=== PATIENT | female | born 1965 | race Caucasian/White ===

== ENCOUNTER 2016-07-28 05:20 | Day surgery (SDC) | payer BC ==
--- NOTE | 2016-07-25 02:59 | PREOPHP ---
DATE OF ADMISSION: 07/28/2016 HISTORY OF PRESENT ILLNESS: This is a 50-year-old female, 5, para 4, abortions 1. This pat ient had a history of 4 sections, a total abdominal hysterectomy, bilateral salpingectomy, and a history of having bladder tumors removed and a suburethral sling and with a protrusion that garg s been giving her recurrent UTIs. The patient has been placed on cream and exercises. She had been having frequent UTIs and some ____ resistant to antibiotics. MEDICATIONS: 1. Amitriptyline. 2. Gabapentin. 3. Klonopin. 4. Flomax. 5. Soma. 6. Ambien. 7. Medication for diabetes. 8. Bentyl. 9. Pepcid. 10. Zantac. 11. Proctosol. She has been complaining of having diabetes that has been out of control with a medication called Jonathan thompson recently with a little more controlled results. This patient has been found to have a prot rusion of the sling on the left vaginal area from the [employer] suburethral sling that will be excised under general anesthesia. FAMILY HISTORY: Noncontributory. PAST SURGICAL HISTORY: Her own history is also consistent with 4 sections, a hysterectomy, bladder tumor repair, and a sling. REVIEW OF SYSTEMS: Otherwise negative. FAMILY HISTORY: Noncontributory. PHYSICAL EXAMINATION: VITAL SIGNS: She is 5 feet 2 inches. She weighs 154. Her blood pressure is 140/90, pulse is 80, r espirations 16. HEAD AND NECK: Normal. CHEST: Clear. HEART: Normal sinus rhythm. LUNGS: Clear. ABDOMEN: Soft, nontender, no masses. GENITALIA: With a sling protrusion that is left-sided with vaginal atrophy. EXTREMITIES: Normal, absent uterus, normal pulses, no edema. DIAGNOSES: 1. Recurrent urinary tract infections. 2. Abdominal pain. 3. Diabetes. 4. Sling protrusion. 5. Constipation. PLAN: She is undergoing a sling to vaginal route and repair. The patient has been advised of the possible risks and possible complications of the procedure with her alternatives and options. Written information was provided. She had no more questions and agreed to go ahead with the procedu re with full understanding and no more questions. FINAL DIAGNOSIS: 1. Sling protrusion. 2. Recurrent infections. PROCEDURE: Revision of the sling with partial excision. Dictated By: TANESHA DIEGO/SLAVA Conf#: [id number] DID#: [id number]
[2016-07-27 12:12] VITALS: BMI 28.2
[2016-07-28] VITALS (8 sets, daily range): BP systolic 138–150; BP diastolic 71–81; PULSE 58–90; RESP 15–26; Ht 152.4 cm; Wt 69.5 kg
[~2016-07-28] VITALS: Ht 152.4 cm; Wt 69.5 kg
[~2016-07-28 05:20] MED LIST: ASPIRIN; ATORVASTATIN; HYDR-3498 PO; INDOMETHACIN; LINA1TAB5 PO; LOSARTAN
[2016-07-28] MEDS ORDERED: CEFAZOLIN 2 GM/50 ML (PMX) 50 ML IVPB ONE (06:00)
[2016-07-28] MEDS ORDERED: DEXTROSE 5%-LR 1,000 ML IV ONE (06:00)
[2016-07-28] MEDS ORDERED: POLYMYXIN/BACITRACIN 1L IRRIG ONE (07:04)
[2016-07-28] MEDS ORDERED: LIDOCAINE 1%/EPI (MDV) 20 ML INJ ONE (07:04)
[2016-07-28] MEDS ORDERED: ATOR20TA38 PO (07:07)
--- NOTE | 2016-07-28 07:57 | HPN ---
Date/Time of Note Date/Time of Note DATE: 07/28/16 TIME: 07:57 Interval H&P Admission Note Pt. seen H&P reviewed: No system changes TANESHA JEFFERS MD Jul 28, 2016 07:57
[2016-07-28] MEDS ORDERED: FENTAnyl 50 MCG/ML VIAL ONE (08:11)
[2016-07-28] MEDS ORDERED: CEFAZOLIN 1 GM INJ ONE (08:33)
[2016-07-28] MEDS ORDERED: NEOSTIGMINE 3 MG/3 ML SYRINGE ONE (08:33)
[2016-07-28] MEDS ORDERED: GLYCOPYRROLATE 0.4 MG INJ ONE (08:33)
[2016-07-28] MEDS ORDERED: ROCURONIUM 50 MG INJ ONE (08:33)
[2016-07-28] MEDS ORDERED: PROPOFOL 20 ML ONE ×2 (08:33→08:48)
[2016-07-28] MEDS ORDERED: SUCCINYLCHOLINE CHLORIDE 100 MG/5 ML SYG IV ONE (08:33)
[2016-07-28] MEDS ORDERED: LIDOCAINE 2% (SDV) 5 ML INJ ONE (08:33)
[2016-07-28] MEDS ORDERED: DIPHENHYDRAMINE 50 MG INJ IV PRN (09:00)
[2016-07-28] MEDS ORDERED: METOCLOPRAMIDE 10 MG INJ IV PRN (09:00)
[2016-07-28] MEDS ORDERED: FENTAnyl 50 MCG/ML VIAL IV PRN (09:00)
[2016-07-28] MEDS ORDERED: MEPERIDINE 25 MG INJ IV PRN (09:00)
[2016-07-28] MEDS ORDERED: ONDANSETRON 4 MG INJ IV PRN (09:00)
[2016-07-28] MEDS ORDERED: HYDROmorphONE (0.2 MG/ML) 10ML SYG IV PRN ×3 (09:00)
--- NOTE | 2016-07-28 09:28 | PD.PPDC ---
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
--- NOTE | 2016-07-28 09:34 | OPPN ---
Date/Time of Note Date/Time of Note DATE: 07/28/16 TIME: 09:30 Operative/Procedure Note Pre-Operative Diagnosis Recurrent UTI'S Suburethral sling protrusion Diabetes Post-Operative Diagnosis same Procedure vaginal sling revision and partial excision Surgeon: TANESHA JEFFERS MD Anesthesiologist: BRIANNA FAIR Findings sling vaginal protrusion Estimated blood loss: minimal Specimens sling, partial Complications: None Anesthesia type: general TANESHA JEFFERS MD Jul 28, 2016 09:34
--- NOTE | 2016-07-28 10:05 | OPR ---
DATE OF OPERATION: 07/28/2016 PREOPERATIVE DIAGNOSES: 1. Recurrent urinary tract infections. 2. Suburethral sling protrusion. 3. Diabetes. POSTOPERATIVE DIAGNOSES: 1. Recurrent urinary tract infections. 2. Suburethral sling protrusion. 3. Diabetes. PROCEDURE PERFORMED: Suburethral vaginal sling revision and partial excision SURGEON: Tanesha Anderson MD ANESTHESIOLOGIST: Rosalio Franklin MD COMPLICATIONS: None. ANESTHESIA: General. DESCRIPTION OF PROCEDURE: The patient was given general anesthesia, placed in the lithotomy positio n. The perineal and vaginal area were prepped and draped and a vaginal speculum was applied. The p rotrusion was visualized on the left upper corner of the vagina and also on the right corner of the vagina next to the entrance of the sling. The Burciaga catheter was placed in and the area of the slin g was held with an Allis. An injection with Xylocaine and epinephrine was given all around with a c ircular movement. A horizontal incision was made on the vagina and the dissection of the vaginal mucosa was done separ ating the piece of sling that was protruding from the vaginal mucosa. The sling was isolated up to about 2 cm in where it was cut and a little piece of mucosa was also removed it. Surgicel was place d in the area for venous control of bleeding and the vagina was closed horizontally with interrupted sutures with 2-0 Vicryl pop-offs. The same thing was done on the other side where apparently there is a dimpling of the vaginal mucosa on the bottom of the entrance of the sling laterally. A small incision was made transversely and injection of Xylocaine and epinephrine was given. The sling was from the vaginal mucosa. Surgicel was applied and the vagina was closed with interrupted sutures with 2-0 Vicryl. Hemostasis was good. The patient tolerated the procedure well and left th e OR awake and stable. Sponge counts, instrument counts, needle counts were correct. Intravenous a ntibiotics were given for prophylaxis. Dictated By: TANESHA DIEGO/SLAVA Conf#: [id number] DID#: [id number]
== END 2016-07-28 18:00 | disposition home or self-care (01) ==
LOC: SDS 05:20
PROVIDERS: ATTEND Obstetrics & Gynecology
DX: T83.498A Other mechanical complication of other prosthetic devices, implants and grafts of genital tract, initial encounter (principal); N39.0 Urinary tract infection, site not specified; E11.9 Type 2 diabetes mellitus without complications; I10 Essential (primary) hypertension
CPT/HCPCS: 57287; 82962; 88304; J0330; J0690; J1170; J2710; J3010; J7121

== ENCOUNTER 2017-09-21 05:45 | Inpatient (IN) | END 2017-09-27 18:35 | disposition home health service (06) | DRG 472 ==

== ENCOUNTER 2018-02-03 16:03 | Emergency (ER) | END 2018-02-03 19:16 | disposition home or self-care (01) ==